=== PATIENT | female | born 2000 | race Caucasian/White ===

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

== ENCOUNTER 2021-05-22 19:09 | Emergency (ER) | payer OTHER ==
[~2021-05-22] VITALS: Ht 154.9 cm; Wt 76.9 kg
[~2021-05-22 19:09] MED LIST: ACET325C5 PO; LIDO1CRE2 EXT
[2021-05-22 20:09] LABS: BASO # 0.1 10^3/uL (0.0-0.2); BASO % 0.9 % (0.0-1.0); EOS # 0.2 10^3/uL (0.0-0.5); EOS % 2.6 % (0.0-3.0); HEMATOCRIT 43.2 % (36.0-47.0); LYMPH # 2.5 10^3/uL (1.5-5.0); LYMPH % 37.9 % (24.0-44.0); MEAN CORPUSCULAR HEMOGLOBIN 30.6 pg (27.0-33.0); MEAN CORPUSCULAR HGB CONC 34.7 g/dl (32.0-36.5); MEAN CORPUSCULAR VOLUME 88.2 fl (80.0-96.0); MONO # 0.5 10^3/uL (0.0-0.8); MONO % 7.4 % (2.0-8.0); NEUTROPHILS # 3.3 10^3/uL (1.5-8.5); NEUTROPHILS % 50.9 % (36.0-66.0); PLATELET COUNT, AUTOMATED 231 10^3/uL (150-450); WHITE BLOOD COUNT 6.5 10^3/uL (4.0-10.0)
[2021-05-22 20:41] LABS: BILIRUBIN,DIRECT 0.1 MG/DL (0.0-0.2); BILIRUBIN,TOTAL 0.7 MG/DL (0.2-1.0)
[2021-05-22 23:55] VITALS: BP 125/79
--- NOTE | 2021-05-23 00:56 | REPVR ---
PROCEDURE INFORMATION: Exam: US Pelvis Complete, Transabdominal and US Pelvis, Transvaginal Exam date and time: 05/22/2021 11:29 PM Age: 20 years old Clinical indication: Pelvic pain TECHNIQUE: Imaging protocol: Real-time transabdominal and transvaginal pelvic ultrasound (complete) with image documentation. Transvaginal imaging was used for better evaluation of the endometrium, adnexa, and/or cervix. COMPARISON: No relevant prior studies available. FINDINGS: Uterus/cervix: Uterus measures 6.4 x 3.6 x x 5.8 cm. No masses. Endometrial stripe measures 1.0 cm in thickness. Right adnexa: Right ovary measures 3.1 x 2.8 x 1.9 cm. There appears to be a cyst in the right ovary measuring 2.1 x 1.5 x 1.0 cm. Right ovary is not well evaluated. Left adnexa: Anechoic cyst in the left ovary measuring 3.3 x 3.3 x 3.0 cm. Left ovary measures 3.7 x 4.8 x 3.6 cm. No masses. Intraperitoneal space: No intraperitoneal fluid. Urinary bladder: Normal. IMPRESSION: 1. Unremarkable uterus. 2. Bilateral ovarian cysts. Benign finding in the physiologic size range. No follow-up is needed, however, recommend follow-up evaluation as clinically warranted. (Reference: Ana, 2019) REFERENCES: Ana Sutton et al. Simple Adnexal Cysts: SRU Consensus Conference Update on Follow-up and Reporting. Radiology. 2019;293(2):[id number]. Electronically signed by: Alden Brownlee On 05/23/2021 00:56:08 AM
== END 2021-05-23 00:25 | disposition home or self-care (01) ==
LOC: M ED 19:09
DX: R10.2 Pelvic and perineal pain (principal); N83.299 Other ovarian cyst, unspecified side; F17.200 Nicotine dependence, unspecified, uncomplicated

== ENCOUNTER → 2024-06-20 | Outpatient (REF) | payer OTHER ==
[2024-06-20 20:06] LABS: GC DNA AMPLIFICATION NEGATIVE (NEGATIVE)
== END ==
LOC: M LAB REF 17:01
PROVIDERS: ATTEND Registered Nurse
DX: Z00.00 Encounter for general adult medical examination without abnormal findings (principal); Z11.3 Encounter for screening for infections with a predominantly sexual mode of transmission